=== PATIENT | male | born 1995 | race Caucasian/White ===

== ENCOUNTER 2024-11-07 17:20 | Emergency (ER) | payer OTHER ==
--- NOTE | 2024-11-07 17:41 | ED ---
Nausea/Vomiting/Diarrhea HPI - General Source: family, EMS, RN notes reviewed Mode of arrival: wheelchair Limitations: no limitations - History of Present Illness MD complaint: nausea, vomiting Onset/Timin -: days(s) <Aditya Walker - Last Filed: 11/07/24 17:38> - General Source: patient, RN notes reviewed, old records reviewed <Daniel Conti - Last Filed: 11/07/24 21:08> - General Stated complaint: NVD Time Seen by Provider: 11/07/24 17:34 - History of Present Illness Initial comments: Quick note: This is a 29-year-old male presenting via EMS with GI and cardiac symptoms. Triage nurse states EMS presented patient as a hyperemesis cannabinoid case with uncontrolled vomiting. Patient unable to speak for himself and instead called ex- who explained it that following cholecystectomy, patient occasionally has right upper quadrant abdominal pain that causes his heart rate to drop into the 30s/40s due to increased life stressors. (Aditya Walker) Patient is a 29-year-old male with history of frequent marijuana use, cholecystectomy, marijuana induced hyperemesis who presents emergency department complaining of persistent abdominal pain, nausea, vomiting. States that has been ongoing for 1 day. States he does smoke marijuana on a daily basis and has experienced this many times previously. States hot showers improve his symptoms. Is asking for a hot shower. Denies any chest pain. Denies any urinary complaints. Denies diarrhea or constipation. Presents for further evaluation at this time. Patient originally seen as a quick note. I evaluated patient when he was placed in a room. (Daniel Conti) - Related Data Allergies Allergy/AdvReac Type Severity Reaction Status Date / Time No Known Allergies Allergy Verified 11/07/24 17:45 Review of Systems ROS Other: All systems not noted in ROS Statement are negative. <Aditya Walker - Last Filed: 11/07/24 17:38> ROS Other: All systems not noted in ROS Statement are negative. <Daniel Conti - Last Filed: 11/07/24 21:08> ROS Statement: Those systems with pertinent positive or pertinent negative responses have been documented in the HPI. Review of Systems: CONST: Denies fever EYES: Denies blurry vision ENT: Denies nasal congestion C/V: Denies Chest pain RESP: Denies shortness of breath GI: Endorses epigastric abdominal discomfort : Denies dysuria SKIN: Denies rash. MSK: Denies joint pain. NEURO: Denies headache (Daniel Conti) General Exam <Aditya Walker - Last Filed: 11/07/24 17:38> <Daniel Conti - Last Filed: 11/07/24 21:08> - General Exam Comments Initial Comments: Visual Physical Exam Vital signs reviewed General: Patient leaning forward, head down in wheelchair, holding emesis bag Head: Normocephalic, atraumatic Eyes: PERRLA, EOMI ENT: Airway patent Chest: Nonlabored breathing Skin: No visual rash, normal skin tone Neuro: Alert and oriented 3. Patient responsive to verbal Musculoskeletal: No gross abnormalities (Aditya Walker) General: Appears in mild to moderate distress secondary to nausea and active emesis. HEAD: Normal with no signs of head trauma. EYES: EOMI. ENT: Hearing grossly intact, normal oropharynx. RESPIRATORY: Clear breath sounds bilaterally. No wheezes, rales, or rhonchi. C/V: Regular rate and rhythm. S1 and S2 auscultated, no edema, peripheral pulses 2+ and intact throughout ABD: Abdomen is soft, nondistended. Tender to palpation epigastric region. No guarding or rebound tenderness. No peritoneal signs. EXT: No obvious deformity. SKIN: No rashes or lesions observed on exposed skin. NEURO: Alert and oriented x 4. (Daniel Conti) Course Vital Signs 11/07/24 11/07/24 17:45 20:46 Temperature 98.3 F 98.7 F Pulse Rate 48 L 70 Respiratory 18 16 Rate Blood Pressure 129/72 130/74 O2 Sat by Pulse 99 98 Oximetry Medical Decision Making <Aditya Walker - Last Filed: 11/07/24 17:38> - Lab Data Result diagrams: 11/07/24 18:11 11/07/24 18:11 - EKG Data -: EKG Interpreted by Me <Daniel Conti - Last Filed: 11/07/24 21:08> - Medical Decision Making I completed the quick note portion of this chart signed JUAN LUIS Martines (Aditya Walker) Was pt. sent in by a medical professional or institution ([facility], [employer], urgent care, hospital, or [facility]...) When possible be specific @ -No Did you speak to anyone other than the patient for history (EMS, parent, family, police, friend...)? What history was obtained from this source @ -No Did you review nursing and triage notes (agree or disagree)? Why? @ -I reviewed and agree with nursing and triage notes Were old charts reviewed (outside hosp., previous admission, EMS record, old EKG, old radiological studies, urgent care reports/EKG's, [facility] records)? Report findings @ -No old charts were reviewed Differential Diagnosis (chest pain, altered mental status, abdominal pain women, abdominal pain men, vaginal bleeding, weakness, fever, dyspnea, syncope, headache, dizziness, GI bleed, back pain, seizure, CVA, palpatations, mental health, musculoskeletal)? @ -Differential Abdominal Pain Men: Appendicitis, cholecystitis, diverticulosis, ischemic bowel, pancreatitis, hepatitis, UTI, gastroenteritis, AAA, incarcerated hernia, bowel obstruction, constipation, inflammatory bowel, hepatitis, peptic ulcer disease, splenic infarction, perforated viscus, testicular torsion, this is not meant to be an all-inclusive list EKG interpreted by me (3pts min.). @ -As above X-rays interpreted by me (1pt min.). @ -None done CT interpreted by me (1pt min.). @ -None done U/S interpreted by me (1pt. min.). @ -None done What testing was considered but not performed or refused? (CT, X-rays, U/S, labs)? Why? @ -None What meds were considered but not given or refused? Why? @ -None Did you discuss the management of the patient with other professionals (professionals i.e. , PA, [employer] OUT D[employer]LLER HELPER, lab, RT, psych nurse, public health social worker, colors custodian, teacher, career services officer, showcase trimmer)? Give summary @ -No Was smoking cessation discussed for >3mins.? @ -No Was critical care preformed (if so, how long)? @ -No Were there social determinants of health that impacted care today? How? (Homelessness, low income, unemployed, alcoholism, drug addiction, transportation, low edu. Level, literacy, decrease access to med. care, long term, rehab)? @ -No Was there de-escalation of care discussed even if they declined (Discuss DNR or withdrawal of care, Hospice)? DNR status @ -No What co-morbidities impacted this encounter? (DM, HTN, Smoking, COPD, CAD, Cancer, CVA, ARF, Chemo, Hep., AIDS, mental health diagnosis, sleep apnea, morbid obesity)? @ -Marijuana induced hyperemesis syndrome Was patient admitted / discharged? Hospital course, mention meds given and route, prescriptions, significant lab abnormalities, going to OR and other pertinent info. @ -Patient presents emergency department with epigastric abdominal discomfort, nausea, vomiting. Patient has a history of marijuana induced hyperemesis syndrome. These are similar symptoms to symptoms he experienced in the past. States hot showers improve them. Last smoked marijuana yesterday prior to onset of symptoms. Originally seen as a quick note and abdominal workup obtained. Patient will be administered IV fluids, Toradol, Protonix, Haldol, Benadryl. Patient was in agreement this plan. Vitals are within acceptable limits. EKG shows no signs of acute ischemia. Laboratory studies remarkable for mild leukocytosis of 12.9 which is likely reactive, troponin within normal limits. EKG shows no signs of acute ischemia. On reevaluation, patient is feeling improved. He would like to go home. I believe this is reasonable. Patient be discharged home at this time. Discussed smoking cessation and stopping use of marijuana. Patient expressed understanding. I will provide the patient with a prescription for ODT Zofran. I instructed the patient to follow up with their PCP in the next 1-3 days.. I explained that the patient should return to the emergency department if they experience any worsening symptoms. Strict return precautions were discussed with the patient. The patient expressed understanding of these instructions. I answered all questions that the patient had. The patient was discharged home in good condition with their prescriptions and follow up information. Undiagnosed new problem with uncertain prognosis? @ -No Drug Therapy requiring intensive monitoring for toxicity (Heparin, Nitro, Insulin, Cardizem)? @ -No Were any procedures done? @ -No Diagnosis/symptom? @ -Nausea and vomiting, marijuana induced hyperemesis syndrome Acute, or Chronic, or Acute on Chronic? @ -Acute Uncomplicated (without systemic symptoms) or Complicated (systemic symptoms)? @ -Complicated Side effects of treatment? @ -No Exacerbation, Progression, or Severe Exacerbation? @ -No Poses a threat to life or bodily function? How? (Chest pain, [place], [place], pneumonia, PE, COPD, DKA, ARF, appy, cholecystitis, CVA, Diverticulitis, Homicidal, Suicidal, threat to staff... and all critical care pts) @ -Unlikely (Daniel Conti) - Lab Data Lab Results 11/07/24 11/07/24 11/07/24 Range/Units 18:11 18:11 18:11 WBC 12.9 H (3.8-10.6) k/uL RBC 5.29 (4.30-5.90) m/uL Hgb 16.0 (13.0-17.5) gm/dL Hct 47.6 (39.0-53.0) % MCV 89.9 (80.0-100.0) fL MCH 30.2 (25.0-35.0) pg MCHC 33.6 (31.0-37.0) g/dL RDW 13.4 (11.5-15.5) % Plt Count 199 (150-450) k/uL MPV 8.6 Neutrophils % 86 % Lymphocytes % 10 % Monocytes % 2 % Eosinophils % 1 % Basophils % 0 % Neutrophils # 11.1 H (1.3-7.7) k/uL Lymphocytes # 1.2 (1.0-4.8) k/uL Monocytes # 0.3 (0-1.0) k/uL Eosinophils # 0.1 (0-0.7) k/uL Basophils # 0.0 (0-0.2) k/uL PT 10.6 (10.0-12.5) sec INR 0.9 (<1.2) APTT 20.2 L (22.0-30.0) sec Sodium 139 (137-145) mmol/L Potassium 3.9 (3.5-5.1) mmol/L Chloride 103 (98-107) mmol/L Carbon Dioxide 27 (22-30) mmol/L Anion Gap 9 mmol/L BUN 12 (9-20) mg/dL Creatinine 0.99 (0.66-1.25) mg/dL Est GFR (CKD-EPI)AfAm >90 (>60 ml/min/1.73 sqM) Est GFR (CKD-EPI)NonAf >90 (>60 ml/min/1.73 sqM) Glucose 124 H (74-99) mg/dL Plasma Lactic Acid Gustavo (0.7-2.0) mmol/L Calcium 10.2 (8.4-10.2) mg/dL Total Bilirubin 0.6 (0.2-1.3) mg/dL AST 25 (17-59) U/L ALT 22 (4-49) U/L Alkaline Phosphatase 81 (38-126) U/L Troponin I (0.000-0.034) ng/mL Total Protein 7.4 (6.3-8.2) g/dL Albumin 5.0 (3.5-5.0) g/dL Amylase 37 (30-110) U/L Lipase 38 (23-300) U/L 11/07/24 11/07/24 Range/Units 18:11 18:11 WBC (3.8-10.6) k/uL RBC (4.30-5.90) m/uL Hgb (13.0-17.5) gm/dL Hct (39.0-53.0) % MCV (80.0-100.0) fL MCH (25.0-35.0) pg MCHC (31.0-37.0) g/dL RDW (11.5-15.5) % Plt Count (150-450) k/uL MPV Neutrophils % % Lymphocytes % % Monocytes % % Eosinophils % % Basophils % % Neutrophils # (1.3-7.7) k/uL Lymphocytes # (1.0-4.8) k/uL Monocytes # (0-1.0) k/uL Eosinophils # (0-0.7) k/uL Basophils # (0-0.2) k/uL PT (10.0-12.5) sec INR (<1.2) APTT (22.0-30.0) sec Sodium (137-145) mmol/L Potassium (3.5-5.1) mmol/L Chloride (98-107) mmol/L Carbon Dioxide (22-30) mmol/L Anion Gap mmol/L BUN (9-20) mg/dL Creatinine (0.66-1.25) mg/dL Est GFR (CKD-EPI)AfAm (>60 ml/min/1.73 sqM) Est GFR (CKD-EPI)NonAf (>60 ml/min/1.73 sqM) Glucose (74-99) mg/dL Plasma Lactic Acid Gustavo 1.5 (0.7-2.0) mmol/L Calcium (8.4-10.2) mg/dL Total Bilirubin (0.2-1.3) mg/dL AST (17-59) U/L ALT (4-49) U/L Alkaline Phosphatase (38-126) U/L Troponin I 0.016 (0.000-0.034) ng/mL Total Protein (6.3-8.2) g/dL Albumin (3.5-5.0) g/dL Amylase (30-110) U/L Lipase (23-300) U/L - EKG Data EKG Comments: 12-lead Electrocardiogram Interpretation Note EKG was reviewed and interpreted by myself. 12-lead ECG performed at 1811 is interpreted by me as revealing sinus bradycardia with early repolarization changes at a rate of 53 beats per minute. [place] is normal. [place] interval is 141 ms, QRS durations 107 ms, QTc is 367 ms. Patient has findings consistent with benign early repolarization.. There were no ST or T wave abnormalities to suggest myocardial ischemia or injury. R wave progression across the precordium was satisfactory. By my interpretation this EKG is non-diagnostic for acute ischemia. (Daniel Conti) Disposition <Aditya Walker - Last Filed: 11/07/24 17:38> Is patient prescribed a controlled substance at d/c from ED?: No Time of Disposition: 20:32 <Daniel Conti - Last Filed: 11/07/24 21:08> Clinical Impression: Nausea and vomiting, Cannabis hyperemesis syndrome concurrent with and due to cannabis abuse Disposition: HOME SELF-CARE Condition: Good Instructions (If sedation given, give patient instructions): Acute Nausea and Vomiting (ED) Additional Instructions: Cease use of your cannabis/marijuana. Follow-up with your PCP in the next 1 to 3 days. Return to the emergency department for any worsening symptoms. Referrals: None,Stated [Primary Care Provider] - 1-2 days Forms: Area PCPs
[2024-11-07 18:30] LABS: Basophils % (A) 0 %; Eosinophils # (A) 0.1 k/uL (0-0.7); Eosinophils % (A) 1 %; HCT 47.6 % (39.0-53.0); Lymphocytes # (A) 1.2 k/uL (1.0-4.8); Lymphocytes % (A) 10 %; MCH 30.2 pg (25.0-35.0); MCHC 33.6 g/dL (31.0-37.0); MCV 89.9 fL (80.0-100.0); Mean Platelet Volume 8.6; Monocytes # (A) 0.3 k/uL (0-1.0); Monocytes % (A) 2 %; Neutrophils # (A) 11.1 k/uL (1.3-7.7); Neutrophils % (A) 86 %; Platelet Count 199 k/uL (150-450); RBC 5.29 m/uL (4.30-5.90); RDW 13.4 % (11.5-15.5); WBC 12.9 k/uL (3.8-10.6)
[2024-11-07 18:42] LABS: INR 0.9 (<1.2); Prothrombin Time 10.6 sec (10.0-12.5)
[2024-11-07 18:45] LABS: ALT 22 U/L (4-49); African American GFR (CKD) >90 (>60 ml/min/1.73 sqM); Amylase 37 U/L (30-110); Anion Gap 9 mmol/L; Blood Urea Nitrogen 12 mg/dL (9-20); Calcium 10.2 mg/dL (8.4-10.2); Carbon Dioxide 27 mmol/L (22-30); Chloride 103 mmol/L (98-107); Glucose 124 mg/dL (74-99); Lipase 38 U/L (23-300); Non-African American GFR(CKD) >90 (>60 ml/min/1.73 sqM); Sodium 139 mmol/L (137-145); Total Bilirubin 0.6 mg/dL (0.2-1.3); Total Protein 7.4 g/dL (6.3-8.2)
[2024-11-07 18:46] LABS: Partial Thromboplastin Time 20.2 sec (22.0-30.0)
[2024-11-07 18:55] LABS: AST 25 U/L (17-59); Alkaline Phosphatase 81 U/L (38-126); Potassium 3.9 mmol/L (3.5-5.1)
[2024-11-07] MEDS: SODIUM CHLORIDE 0.9% 1,000 ML IV STA (18:57)
[2024-11-07] MEDS: KETOROLAC 15 MG/ML 1 ML VIAL IVP STA (19:22)
[2024-11-07] MEDS: HALOPERIDOL LACTATE 5 MG/ML 1 ML VIAL IVP STA (19:23)
[2024-11-07] MEDS: PANTOPRAZOLE 40 MG/10 ML VIAL IVP STA (19:24)
[2024-11-07] MEDS: diphenhydrAMINE 50 MG/ML 1 ML VIAL IVP STA (19:26)
[2024-11-07] MEDS: ONDANSETRON 4 MG ODT STARTER PACK 2 TAB BTL PO STA (20:41)
[2024-11-07 20:47] VITALS: BP 130/74; PULSE 70; RESP 16; TEMP 98.7
== END 2024-11-07 20:51 | disposition home or self-care (01) ==
LOC: EC 17:20
DX: R11.2 Nausea with vomiting, unspecified (principal); F12.10 Cannabis abuse, uncomplicated
CPT/HCPCS: 36415; 93005; 80053; 82150; 83605; 83690; 84484; 85025; 85610; 85730; 99284; 96374; 96375; 96361; J1200; J1630; J1885; S0119; J2470

== ENCOUNTER 2025-02-11 09:46 | Day surgery (SDC) | payer OTHER ==
[2025-02-11] MEDS: LACTATED RINGERS 1,000 ML IV ONE (10:00)
[2025-02-11 10:10] VITALS: RESP 18; TEMP 98
[2025-02-11] MEDS: LACTATED RINGERS 1,000 ML IV SCH (10:11)
[2025-02-11] MEDS ORDERED: LIDOCAINE 1% INJ 10MG/ML (20 ML MDV) ONE (10:29)
[2025-02-11] MEDS ORDERED: PROPOFOL 10 MG/ML 20 ML VIAL IV ONE (10:29)
--- NOTE | 2025-02-11 10:44 | P.PCN ---
Date of Procedure: 02/11/25 Procedure(s) Performed: BRIEF HISTORY: Patient is a 29-year-old, pleasant, white male scheduled for an upper endoscopy as a part of evaluation of intermittent episodes of epigastric abdominal pain associate with nausea vomiting and diarrhea for the last 5 years duration.. These episodes happen once a month or so and last for 36 to 48 hours. PROCEDURE PERFORMED: Esophagogastroduodenoscopy with biopsy. PREOPERATIVE DIAGNOSIS: Intermittent episodes of abdominal pain associate with nausea vomiting and diarrhea of 5 years duration. IV sedation per anesthesia. PROCEDURE: After informed consent was obtained, the patient was brought into the endoscopy unit. IV sedation was administered by Anesthesia under continuous monitoring. Initially the Olympus GIF-140 video endoscope was inserted into the mouth. Esophagus intubated without any difficulty. It was gradually advanced into the stomach and duodenum and carefully examined. The bulb and the second part of the duodenum appeared normal. Biopsies were done from the duodenum rule out celiac disease. The scope at this time was withdrawn to the stomach, adequately insufflated with air, and upon careful examination, mucosa of the antrum, and mild mottling of the mucosa consistent with gastritis and biopsies were done from this area. Mucosa of the body, cardia and the fundus appeared normal. The scope was then withdrawn into the esophagus. The GE junction was located at 42 cm from the incisors. The esophagus appeared normal. There were no erosions or ulcerations seen, biopsies were done from the distal esophagus and the patient tolerated the procedure well. IMPRESSION: 1. Mild antral gastritis. 2. No evidence of esophagitis or peptic ulcer disease. RECOMMENDATIONS: The findings of this examination were discussed with the patient as well as his family. He was advised to follow with the biopsy results. He will be seen in the office in 2 to 3 weeks..
[2025-02-11 11:15] VITALS: BP 90/53; PULSE 60
== END 2025-02-11 11:34 | disposition home or self-care (01) ==
LOC: ORWHC2ENDO 09:46
PROVIDERS: ATTEND Internal Medicine Gastroenterology
DX: K29.50 Unspecified chronic gastritis without bleeding (principal); K21.00 Gastro-esophageal reflux disease with esophagitis, without bleeding; F17.200 Nicotine dependence, unspecified, uncomplicated; F32.A Depression, unspecified; F41.9 Anxiety disorder, unspecified; F43.10 Post-traumatic stress disorder, unspecified; F12.90 Cannabis use, unspecified, uncomplicated; Z79.899 Other long term (current) drug therapy
CPT/HCPCS: 88305; 43239; J2003; J2704